=== PATIENT | male | born 1995 | race Caucasian/White ===

== ENCOUNTER 2018-11-30 01:13 | Emergency (ER) | payer MEDICAID ==
[~2018-11-30] VITALS: Ht 165.1 cm; Wt 57.6 kg
--- NOTE | 2018-11-30 01:50 | NUR ---
PT PRESENTED TO THE ER WITH NO REAL COMPLAINT AND PT WOULD NOT STATE WHAT WAS WRONG IN TRIAGE. PT AMBULATED TO ER 7 WITH A STEADY GAIT. PT WAS SEEN BY DR. CHOUDHURY
--- NOTE | 2018-11-30 02:03 | NUR ---
Patient discharged to home in stable condition. Written and verbal after care instructions given. Patient verbalizes understanding of instruction. PT LEFT WITHOUT SIGNING ACI. PT AMBULATED OUT WITH A STEADY GAIT.
[2018-11-30 02:16] VITALS: BP 113/75
== END 2018-11-30 02:17 | disposition home or self-care (01) ==
LOC: ER 01:16
DX: F28 Other psychotic disorder not due to a substance or known physiological condition (principal); F17.200 Nicotine dependence, unspecified, uncomplicated
CPT/HCPCS: Z7502